=== PATIENT | male | born 1965 | race Caucasian/White ===

== ENCOUNTER 2017-07-27 19:33 | Emergency (ER) | payer SELFPAY ==
[2017-07-27 19:30] VITALS: O2SAT 96; O2SAT 98
[2017-07-27 19:36] VITALS: BP 153/66; PULSE 68; RESP 16; TEMP 97.8; O2SAT 98
--- NOTE | 2017-07-27 19:44 | PD ---
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 last seen normal at 6 5:00 apparently at 7:00 was not making sense was speaking strangely and minimally responsive paramedics found to be mildly hypertensive at 160 systolic confused and then he had a lateral left-sided gaze preference and then he had some focal like left arm seizure tonic-clonic and then he became more weak on the left arm he arrives he is minimally speaking just staring does not have any obvious gaze preference he has minimal decreased folding machine operator strength in the left hand however both legs is got equal elevation strength smile is symmetric he is crossing midline with his eyes and he has no obvious focal deficit except for decreased strength in his left hand patient is speaking very quietly and he takes a strong effort to make him to speak but he then starts to talk but it seems as if he is not making sense, CAT scan and stroke alert is activated and he is on the CAT scan . I also or CTA neck to rule out vertebral artery involvement and [place] CTA brain , [facility] Social History Tobacco Use: No (unknown due to clinical state and uncooperative pateint) Allergies-Medications (Allergen,Severity, Reaction): Coded Allergies: No Known Allergies (Unverified , 07/27/17) Reported Meds & Prescriptions Reported Meds & Active Scripts Active Reported Aspirin 81 Mg Chew 81 Mg CHEW DAILY Physical Exam Narrative GENERAL: Patient seems disheveled he is staring straight ahead and he has right gaze neglect will not cross midline to the right with his eyes SKIN: Warm and dry. HEAD: Atraumatic. Normocephalic. EYES: Pupils equal and round. No scleral icterus. No injection or drainage. ENT: No nasal bleeding or discharge. Mucous membranes pink and moist. Poor dentition missing many teeth NECK: Trachea midline. No JVD. No JVD CARDIOVASCULAR: Regular rate and rhythm. Heart is regular rate heart rate is 60 sinus RESPIRATORY: No accessory muscle use. Clear to auscultation. Breath sounds equal bilaterally. No respiratory distress GASTROINTESTINAL: Abdomen soft, non-tender, nondistended. Hepatic and splenic margins not palpable. MUSCULOSKELETAL: Extremities patient has a decreased folding machine operator strength and has gross motor discoordination of his left arm. When I asked him to squeeze my finger that I placed in his left palm he reaches with his right hand . Patient seems to have a left arm neglect and a right gaze neglect incongruent neurological distribution for intracranial ischemia NEUROLOGICAL: Awake and alert. Left arm weakness left folding machine operator strength decreased and when he does finger to nose he has discoordination of his left arm. Legs bilaterally have 5 out of 5 strength smile is symmetric right gaze neglect he will not cross midline with his eyes and he reaches with his right hand every time I try to get him to squeeze my finger with his left hand PSYCHIATRIC: Data Data Last Documented VS Vital Signs Date Time Temp Pulse Resp B/P (MAP) Pulse Ox O2 Delivery O2 Flow Rate FiO2 07/27/17 20:16 16 99 Nasal Cannula 2.00 07/27/17 19:44 68 07/27/17 19:36 97.8 153/66 (95) Orders Orders Electrocardiogram (07/27/17 19:39) Prothrombin Time / Inr (Pt) (07/27/17 19:39) Complete Blood Count With Diff (07/27/17 19:39) Comprehensive Metabolic Panel (07/27/17 19:39) Creatine Kinase (Cpk) (07/27/17 19:39) Troponin I (07/27/17 19:39) Ct Brain W/O Iv Contrast(Rout) (07/27/17 19:39) Cta Brain W Iv Contrast W 3d (07/27/17 19:39) Cta Neck W Iv Contrast W 3d (07/27/17 19:39) Chest, Single Ap (07/27/17 19:39) Ecg Monitoring (07/27/17 19:39) Iv Access Insert/Monitor (07/27/17 19:39) Oximetry (07/27/17 19:39) Sodium Chloride 0.9% Flush (Ns Flush) (07/27/17 19:45) Alcohol (Ethanol) (07/27/17 19:42) Iodixanol 320 Inj (Rad Ct) (Visipaque 32 (07/27/17 19:46) I-Stat Profile (07/27/17 19:20) Calcium Gluconate Inj (Calcium Gluconate (07/27/17 20:45) Aspirin Chew (Aspirin Chew) (07/27/17 21:00) Labs Laboratory Tests Test 07/27/17 19:20 07/28/17 19:18 White Blood Count 14.6 TH/MM3 Red Blood Count 4.33 MIL/MM3 Hemoglobin 13.5 GM/DL Bedside Hemoglobin 12.6 G/DL Hematocrit 39.3 % Bedside Hematocrit 37.0 % Mean Corpuscular Volume 90.8 FL Mean Corpuscular Hemoglobin 31.3 PG Mean Corpuscular Hemoglobin Concent 34.5 % Red Cell Distribution Width 13.6 % Platelet Count 322 TH/MM3 Mean Platelet Volume 7.3 FL Neutrophils (%) (Auto) 76.2 % Lymphocytes (%) (Auto) 16.3 % Monocytes (%) (Auto) 5.5 % Eosinophils (%) (Auto) 1.5 % Basophils (%) (Auto) 0.5 % Neutrophils # (Auto) 11.2 TH/MM3 Lymphocytes # (Auto) 2.4 TH/MM3 Monocytes # (Auto) 0.8 TH/MM3 Eosinophils # (Auto) 0.2 TH/MM3 Basophils # (Auto) 0.1 TH/MM3 CBC Comment DIFF FINAL Differential Comment Prothrombin Time 10.0 SEC Prothromb Time International Ratio 1.0 RATIO Bedside Sodium 133 MMOL/L Blood Urea Nitrogen 6 MG/DL Creatinine 0.66 MG/DL Random Glucose 92 MG/DL Total Protein 6.5 GM/DL Albumin 3.5 GM/DL Calcium Level 7.2 MG/DL Alkaline Phosphatase 95 U/L Aspartate Amino Transf (AST/SGOT) 35 U/L Alanine Aminotransferase (ALT/SGPT) 18 U/L Total Bilirubin 0.5 MG/DL Sodium Level 134 MEQ/L Potassium Level 3.9 MEQ/L Chloride Level 103 MEQ/L Carbon Dioxide Level 21.2 MEQ/L Bedside Potassium 3.9 MMOL/L Bedside Chloride 99 MMOL/L Anion Gap 10 MEQ/L Bedside Blood Urea Nitrogen 5 MG/DL Bedside Creatinine 0.6 MG/DL Estimat Glomerular Filtration Rate 126 ML/MIN Bedside Glucose 95 MG/DL Protein Corrected Calcium 7.5 MG/DL Total Creatine Kinase 222 U/L Troponin I LESS THAN 0.02 NG/ML Ethyl Alcohol Level LESS THAN 3 MG/DL Lab Scanned Report Lab Reports - Other [id number] [facility] Medical Decision Making Medical Screen Exam Complete: Yes Emergency Medical Condition: Yes Differential Diagnosis Differential diagnosis includes TIA versus post ictal's paralysis Adarsh's paralysis versus CVA versus vertebral artery dissection versus aneurysm rupture other Narrative Course Patient is a 52-year-old male who comes in by EMS and he is 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 His exam is inconsistent where his right visual gaze neglect also with the left hand neglect eventually patient becomes more awake alert his gaze palsy is resolved and he still has mild left hand weakness patient now is insisting he wants to leave. He says I do not like hospitals I am not staying you cannot make me stay he is alert and oriented 3. He lives with a MsJuvenal Rae he says he wants her to come and get him but we do not have her number and he does not know her phone number he does note house address he does know the day of the week he is oriented 3 and safe that he is of sound mind to make the decision to leave AGAINST MEDICAL ADVICE patient is advised he should stay that the risk of his arm weakness per progressing to a severe permanent deficit is increased by leaving he refuses the aspirin we try to give him I had spoke to . follow-up from neurology I spoke to Dr. Millan for neurosurgeon. Pt is redirected to stay by this MD and from nursing ..Heis still " I hate Hospitals" refuses to stay ..he leaves AGAINST MEDICAL ADVICE signs papers and walked out with no deficit no left-sided weakness.. seems that his symptoms have all resolved except mild hand weakness left . I had explained in detail the risk of propagation of his symptoms to permanent deficits and even possible . He is able to state that he understands the risk and walks out Diagnosis Primary Impression: CVA (cerebral vascular accident) Qualified Codes: I63.9 - Cerebral infarction, unspecified Disposition: 07 AGAINST MEDICAL ADVICE Jameel Singer MD July 27, 2017 19:44
[2017-07-27] MEDS ORDERED: SODIUM CHLORIDE 0.9% FLUSH 10 ML FLUSH IVF PRN (19:45)
[2017-07-27] MEDS ORDERED: IODIXANOL 320 MG/ML 10 ML VIAL (for Rad CT) IVCONTRAST ONE (19:46)
--- NOTE | 2017-07-27 19:51 | RADRPT ---
EXAM DATE/TIME: 07/27/2017 19:37 [facility] COMPARISON: No previous studies available for comparison. INDICATIONS : Stroke alert, left sided weakness, left sided gaze with seizure. RADIATION DOSE: 56.35 CTDIvol (mGy) This report was called by Dr. Garcia to Dr. Pastor at 7: 48 PM MEDICAL HISTORY : Non-responsive. SURGICAL HISTORY : Non-responsive. ENCOUNTER: Initial ACUITY: 1 day PAIN SCALE: Non-responsive LOCATION: cranial TECHNIQUE: Multiple contiguous axial images were obtained of the head. Using automated exposure control and adj ustment of the mA and/or kV according to patient size, radiation dose was kept as low as reasonably a chievable to obtain optimal diagnostic quality images. DICOM format image data is available electro nically for review and comparison. FINDINGS: CEREBRUM: There is a 1 cm hyperdense area seen in the anterior right suprasellar cistern region likely related to an aneurysm. The ventricles are normal for age. No evidence of midline shift, mass lesion, hemorr suze or acute infarction. No extra-axial fluid collections are seen. POSTERIOR FOSSA: The cerebellum and brainstem are intact. The 4th ventricle is midline. The cerebellopontine angle i s unremarkable. EXTRACRANIAL: The visualized portion of the orbits is intact. SKULL: The calvaria is intact. No evidence of skull fracture. CONCLUSION: 1. No acute areas of hemorrhage or mass effect. 2. 1 cm hyperdense mass in the right anterior suprasellar cistern region likely related to an aneurys m. Brayden Garcia MD on July 27, 2017 at 19:45 Board Certified Radiologist. This report was verified electronically.
[2017-07-27 19:53] LABS: AUTOMATED NEUTROPHIL # 11.2 TH/MM3 (1.8-7.7); BASOPHIL # 0.1 TH/MM3 (0-0.2); BASOPHIL % 0.5 % (0.0-2.0); EOSINOPHIL # 0.2 TH/MM3 (0-0.4); EOSINOPHIL % 1.5 % (0.0-4.0); HEMATOCRIT 39.3 % (39.0-51.0); HEMOGLOBIN 13.5 GM/DL (13.0-17.0); LYMPH % 16.3 % (9.0-44.0); LYMPHOCYTE # 2.4 TH/MM3 (1.0-4.8); MEAN CELL VOLUME 90.8 FL (80.0-100.0); MEAN CORPUSCULAR HEMOGLOBIN 31.3 PG (27.0-34.0); MEAN CORPUSCULAR HGB CONC 34.5 % (32.0-36.0); MEAN PLATELET VOLUME 7.3 FL (7.0-11.0); MONO % 5.5 % (0.0-8.0); MONOCYTE # 0.8 TH/MM3 (0-0.9); NEUT % 76.2 % (16.0-70.0); PLATELET COUNT 322 TH/MM3 (150-450); RED BLOOD COUNT 4.33 MIL/MM3 (4.50-5.90); RED CELL DISTRIBUTION WIDTH 13.6 % (11.6-17.2); WHITE BLOOD COUNT 14.6 TH/MM3 (4.0-11.0)
--- NOTE | 2017-07-27 20:05 | RADRPT ---
EXAM DATE/TIME: 07/27/2017 19:52 [facility] COMPARISON: No previous studies available for comparison. INDICATIONS : Stroke alert. MEDICAL HISTORY : None. SURGICAL HISTORY : None. ENCOUNTER: Initial ACUITY: 1 day PAIN SCORE: Non-responsive. LOCATION: Bilateral chest FINDINGS: A single view of the chest demonstrates the lungs to be symmetrically aerated without evidence of mas s, infiltrate or effusion. The cardiomediastinal contours are unremarkable. Old right rib fractures are seen. Contrast is seen in the kidneys. CONCLUSION: No acute disease. Brayden Garcia MD on July 27, 2017 at 20:03 Board Certified Radiologist. This report was verified electronically.
--- NOTE | 2017-07-27 20:10 | RADRPT ---
EXAM DATE/TIME: 07/27/2017 19:37 [facility] COMPARISON: No previous studies available for comparison. INDICATIONS : Stroke alert, left sided weakness. Left sided gaze with seizure. IV CONTRAST: 100 cc Visipaque (iodixanol) IV ; Cumulative dose for multiple exams. RADIATION DOSE: 10.39 CTDIvol (mGy) ; Combined studies MEDICAL HISTORY : Non-responsive. SURGICAL HISTORY : Non-responsive. ENCOUNTER: Initial ACUITY: 1 day PAIN SCALE: Non-responsive LOCATION: neck Elevated flow velocities and ICA/CCA ratios have been found to correlate with increased degrees of vessel stenosis, calculated as percentage of diameter relative to a normal segment of distal ICA/CCA. TECHNIQUE: Volumetric scanning was performed using a multirow detector CT scanner. The data was post processed with a variety of visualization algorithms including full-volume maximum intensity projection, multip lanar sliding thin-slab reformation, curved-planar reformation, and surface-rendering techniques. Us ing automated exposure control and adjustment of the mA and/or kV according to patient size, radiatio n dose was kept as low as reasonably achievable to obtain optimal diagnostic quality images. DICOM f ormat image data is available electronically for review and comparison. FINDINGS: AORTIC ARCH: There is a three-vessel origin of the great vessels from the aorta. No evidence of ostial narrowing. There is calcification seen at the proximal left subclavian artery. RIGHT CAROTID: The common carotid artery is intact. There is mild calcification at the carotid bulb region without a significant stenosis. LEFT CAROTID: The common carotid artery is intact. There is hard and soft plaque seen at the left carotid bulb and proximal internal carotid artery with a very severe stenosis with lumen narrowed by approximately 90 %. VERTEBRALS: Right vertebral artery is intact. The left vertebral artery is not seen throughout the neck. CONCLUSION: 1. Severe focal stenosis at the proximal left internal coronary with the stenosis narrowing the lumen by approximately 90%. 2. Absence of the left vertebral artery. Brayden Garcia MD on July 27, 2017 at 20:04 Board Certified Radiologist. This report was verified electronically.
--- NOTE | 2017-07-27 20:14 | RADRPT ---
EXAM DATE/TIME: 07/27/2017 19:37 [facility] COMPARISON: No previous studies available for comparison. INDICATIONS : Stroke alert, left sided weakness. Left sided gaze with seizure. IV CONTRAST: 100 cc Visipaque (iodixanol) IV ; Cumulative dose for multiple exams. RADIATION DOSE: 10.39 CTDIvol (mGy) MEDICAL HISTORY : Non-responsive. SURGICAL HISTORY : Non-responsive. ENCOUNTER: Initial ACUITY: 1 day PAIN SCALE: Non-responsive LOCATION: cranial TECHNIQUE: Volumetric scanning was performed using a multi-row detector CT scanner. The data was post processed with a variety of visualization algorithms including full volume maximum intensity projection, multi -planar sliding thin slab reformation, curved planar reformation, and surface rendering techniques. Using automated exposure control and adjustment of the mA and/or kV according to patient size, radiat ion dose was kept as low as reasonably achievable to obtain optimal diagnostic quality images. DICO M format image data is available electronically for review and comparison. FINDINGS: There is excellent visualization of the major intracranial arteries out to the second-order branch ve ssels. There is a 1 cm aneurysm seen at the anterior suprasellar cistern region at the level of anterior com municating artery. No other aneurysm is seen. The distal flow appears normal and symmetric. The super ior aspect of the left vertebral artery fills via collaterals. The basilar artery primarily filled by the right vertebral artery. 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 Brayden Garcia MD on July 27, 2017 at 20:09 Board Certified Radiologist. This report was verified electronically.
[2017-07-27 20:16] VITALS: RESP 16; O2SAT 99
[2017-07-27] MEDS ORDERED: ASPI-516 CHEW (20:27)
[2017-07-27 20:36] LABS: ALBUMIN 3.5 GM/DL (3.4-5.0); ALKALINE PHOSPHATASE 95 U/L (45-117); ALT (GPT) 18 U/L (12-78); AST (GOT) 35 U/L (15-37); BICARBONATE 21.2 MEQ/L (21.0-32.0); BLOOD UREA NITROGEN 6 MG/DL (7-18); CALCIUM 7.2 MG/DL (8.5-10.1); CALCIUM-PROTEIN CORRECTED 7.5 MG/DL (8.5-10.1); CHLORIDE 103 MEQ/L (98-107); CREATININE 0.66 MG/DL (0.60-1.30); GLOMERULAR FILTRATION RATE 126 ML/MIN (>89); GLUCOSE,RANDOM 92 MG/DL (74-106); SODIUM (NA) 134 MEQ/L (136-145); TOTAL BILIRUBIN ADULT 0.5 MG/DL (0.2-1.0); TOTAL PROTEIN 6.5 GM/DL (6.4-8.2); TROPONIN I LESS THAN 0.02 NG/ML (0.02-0.05)
[2017-07-27] MEDS ORDERED: CALCIUM GLUCONATE INJ 1 GM in DEXTROSE 5% IN WATER 100ML INJ 100 ML IV ONE ×2 (20:45)
[2017-07-27] MEDS ORDERED: ASPIRIN 81 MG CHEW TAB CHEW ONE (21:00)
--- NOTE | 2017-07-28 12:16 | EKG ---
Date Performed: 07/27/2017 Time Performed: 20:04:53 PTAGE: 52 years EKG: Sinus rhythm POSSIBLE LEFT ATRIAL ENLARGEMENT INCOMPLETE RIGHT BUNDLE BRANCH BLOCK BORDERLINE ECG NO PREVIOUS TRACING DOCTOR: Aleks Huerta Interpretating Date/Time 07/28/2017 12:14:11
== END 2017-07-27 22:02 | disposition left against medical advice (07) ==
LOC: NEPE 19:33
DX: I63.9 Cerebral infarction, unspecified (principal); R94.31 Abnormal electrocardiogram [ECG] [EKG]; I10 Essential (primary) hypertension; I72.8 Aneurysm of other specified arteries; Z79.899 Other long term (current) drug therapy; Z53.29 Procedure and treatment not carried out because of patient's decision for other reasons
CPT/HCPCS: 70450; 70496; 70498; 71045; 80053; 80307; 82550; 84484; 85025; 85610; 93005; 99285; Q9967; 80048

== ENCOUNTER 2017-07-30 19:04 | Observation (INO) | payer OTHER ==
[~2017-07-30] VITALS: Ht 162.6 cm; Wt 68.9 kg
[~2017-07-30 19:04] MED LIST: ASPI-516 CHEW
[2017-07-30 19:23] VITALS: BP 120/59; PULSE 71; RESP 16; TEMP 97.6; O2SAT 96
--- NOTE | 2017-07-30 20:04 | PD ---
HPI Chief Complaint: Alcohol/Drug Intoxication Time Seen by Provider: 19:40 Travel History International Travel<30 days: No Contact w/Intl Traveler<30days: No Traveled to known affect area: No History of Present Illness HPI 52-year-old white male presents emergency department under [place] act by PD due to alcohol intoxication. The patient here states that he is currently homeless. He was just seen in the ER a few days ago for a stroke when they diagnosed an aneurysm. The patient had signed out AGAINST MEDICAL ADVICE. Patient states that his significant other would not allow him to stay in there home and he has been on the streets. He states that he would like to be evaluated for his aneurysm. He does state that he had left-sided weakness which has improved but not completely back to normal. He has had issues with facial droop and slurred speech. He admits to drinking a large quantity of alcohol today. Patient is intoxicated and a reliable history is not completely obtainable. PFS Past Medical History Narrative Medical CVA, cerebral aneurysm, homelessness, alcoholism Diminished Hearing: No (UNKNOWN ) Tetanus Vaccination: Unknown Past Surgical History Surgical History: Unable to Obtain Social History Alcohol Use: Yes Tobacco Use: Yes Substance Use: Yes (Alcohol) Allergies-Medications (Allergen,Severity, Reaction): Coded Allergies: No Known Allergies (Unverified , 07/27/17) Reported Meds & Prescriptions Reported Meds & Active Scripts Active Reported Aspirin 81 Mg Chew 81 Mg CHEW DAILY Review of Systems ROS Limitations: Intoxication Physical Exam Narrative GENERAL: Well-nourished, well-developed patient. SKIN: Warm and dry. HEAD: Normocephalic and atraumatic. EYES: No scleral icterus. No injection or drainage. ENT: No nasal drainage noted. Mucous membranes pink. Airway patent. NECK: Supple, trachea midline. Moves head freely without obvious discomfort. CARDIOVASCULAR: Regular rate and rhythm without murmurs, gallops, or rubs. RESPIRATORY: Breath sounds equal bilaterally. No accessory muscle use. GASTROINTESTINAL: Abdomen soft, non-tender, nondistended. EXTREMITIES: No cyanosis or edema. BACK: Nontender without obvious deformity. No CVA tenderness. NEURO: Patient is alert and oriented to person and place. Patient has been ambulatory but has a mildly ataxic gait due to alcohol. Patient has a right facial droop and some trace weakness on the left side compared to the right.. Normal speech. PSYCH: No delusions. No auditory or visual hallucinations. Slurred speech Data Data Last Documented VS Vital Signs Date Time Temp Pulse Resp B/P (MAP) Pulse Ox O2 Delivery O2 Flow Rate FiO2 07/30/17 23:22 72 16 104/58 (73) 98 Room Air 07/30/17 19:23 97.6 Orders Orders Complete Blood Count With Diff (07/30/17 19:58) Comprehensive Metabolic Panel (07/30/17 19:58) Thyroid Stimulating Hormone (07/30/17 19:58) Electrocardiogram (07/30/17 19:58) Iv Access Insert/Monitor (07/30/17 19:58) Drug Screen, Random Urine (07/30/17 19:58) Alcohol (Ethanol) (07/30/17 19:58) Ct Brain W/O Iv Contrast(Rout) (07/30/17 21:57) Prothrombin Time / Inr (Pt) (07/30/17 22:02) Act Partial Throm Time (Ptt) (07/30/17 22:02) Admit Order (Ed Use Only) (07/31/17 ) Vital Signs (Adult) Q4H (07/31/17 00:23) Diet Npo (07/31/17 Breakfast) Activity Bed Rest (07/31/17 00:23) Notify Dr: Other (07/31/17 00:23) Vital Signs (Adult) Q4H (07/31/17 00:26) Bedside Glucose CAROLA.CSUGAR (07/31/17 00:26) Intake + Output CAROLA.QSHIFT (07/31/17 00:26) Alcohol Withdrawal Asmt-Ciwa Q4HX18 (07/31/17 00:26) ^ Seizure Precautions (07/31/17 00:26) Folic Acid (Folate) (07/31/17 09:00) Thiamine (Vit B1) (Vitamin B1) (07/31/17 09:00) Multivitamins-Minerals Therap (Theragran (07/31/17 09:00) Consult Cm-Etoh Abuse Dc Plan (07/31/17 ) Flumazenil Inj (Romazicon Inj) (07/31/17 00:30) Lorazepam (Ativan) (07/31/17 00:30) Lorazepam Inj (Ativan Inj) (07/31/17 00:30) Lorazepam (Ativan) (07/31/17 00:30) Lorazepam Inj (Ativan Inj) (07/31/17 00:30) Lorazepam Inj (Ativan Inj) (07/31/17 00:30) Lorazepam Inj (Ativan Inj) (07/31/17 00:30) Haloperidol Inj (Haldol Inj) (07/31/17 00:30) Aspirin Ec (Ecotrin Ec) (07/31/17 09:00) Consult Neurology (07/31/17 ) Place In Observation (07/31/17 ) Vital Signs (Adult) Q4H (07/31/17:26) Neuro Checks Q4H (07/31/17) Activity Oob With Assistance (07/31/17) Field Examiner / Telemetry .CONTINUOUS (07/31/17) Intake + Output CAROLA.QSHIFT (07/31/17:) Diet Regular Basic (07/31/17 Breakfast) Sodium Chlor 0.9% 1000 Ml Inj (Ns 1000 M (07/31/17:26) Sodium Chloride 0.9% Flush (Ns Flush) (07/31/17 00:30) Sodium Chloride 0.9% Flush (Ns Flush) (07/31/17 09:00) Metoclopramide Inj (Reglan Inj) (07/31/17 00:30) Comprehensive Metabolic Panel (08/01/17 06:00) Complete Blood Count With Diff (08/01/17 06:00) Pt Request For Service (07/31/17:) Case Management Consult (07/31/17:26) Scd Bilateral/Knee High CAROLA.BID (07/31/17 00:26) Ac Bilateral/Knee High CAROLA.QSHIFT (07/31/17 00:28) Acetaminophen (Tylenol) (07/31/17 00:30) Docusate Sodium-Senna (Ernestine-Colace) (07/31/17 09:00) Magnesium Hydroxide Liq (Milk Of Magnesi (07/31/17 00:30) Sennosides (Senokot) (07/31/17 00:30) Bisacodyl Supp (Dulcolax Supp) (5/21/18 00:30) Lactulose Liq (Lactulose Liq) (07/31/17 00:30) Labs Laboratory Tests Test 07/30/17 20:30 07/30/17 20:35 07/30/17 22:10 White Blood Count 8.5 TH/MM3 Red Blood Count 4.40 MIL/MM3 Hemoglobin 13.8 GM/DL Hematocrit 39.6 % Mean Corpuscular Volume 89.9 FL Mean Corpuscular Hemoglobin 31.4 PG Mean Corpuscular Hemoglobin Concent 35.0 % Red Cell Distribution Width 14.0 % Platelet Count 342 TH/MM3 Mean Platelet Volume 7.2 FL Neutrophils (%) (Auto) 47.6 % Lymphocytes (%) (Auto) 42.8 % Monocytes (%) (Auto) 4.7 % Eosinophils (%) (Auto) 4.3 % Basophils (%) (Auto) 0.6 % Neutrophils # (Auto) 4.1 TH/MM3 Lymphocytes # (Auto) 3.6 TH/MM3 Monocytes # (Auto) 0.4 TH/MM3 Eosinophils # (Auto) 0.4 TH/MM3 Basophils # (Auto) 0.0 TH/MM3 CBC Comment DIFF FINAL Differential Comment Urine Opiates Screen NEG Urine Barbiturates Screen NEG Urine Amphetamines Screen NEG Urine Benzodiazepines Screen NEG Urine Cocaine Screen NEG Urine Cannabinoids Screen NEG Prothrombin Time 12.0 SEC Prothromb Time International Ratio 1.2 RATIO Activated Partial Thromboplast Time 31.6 SEC Blood Urea Nitrogen 2 MG/DL Creatinine 0.54 MG/DL Random Glucose 77 MG/DL Total Protein 6.6 GM/DL Albumin 3.5 GM/DL Calcium Level 7.3 MG/DL Alkaline Phosphatase 90 U/L Aspartate Amino Transf (AST/SGOT) 33 U/L Alanine Aminotransferase (ALT/SGPT) 20 U/L Total Bilirubin 0.3 MG/DL Sodium Level 130 MEQ/L Potassium Level 4.4 MEQ/L Chloride Level 94 MEQ/L Carbon Dioxide Level 24.1 MEQ/L Anion Gap 12 MEQ/L Estimat Glomerular Filtration Rate 159 ML/MIN Protein Corrected Calcium 7.6 MG/DL Thyroid Stimulating Hormone 3rd Gen 2.320 uIU/ML Ethyl Alcohol Level 245 MG/DL MDM Medical Decision Making Medical Screen Exam Complete: Yes Emergency Medical Condition: Yes Medical Record Reviewed: Yes Interpretation(s) Last [address] 07/30/172156 Signed Impressions: Service Date/Time: Sunday, July 30, 2017 23:10 - CONCLUSION: 1. No acute hemorrhage or mass effect. 2. The known 1 cm aneurysm along anterior communicating arteries is again noted. 3. Low attenuation area again noted involving the right parietal lobe most consistent with a subacute to chronic area of infarction. Gee Lin MD Laboratory Tests Test 07/30/17 20:30 07/30/17 20:35 07/30/17 22:10 White Blood Count 8.5 TH/MM3 Red Blood Count 4.40 MIL/MM3 Hemoglobin 13.8 GM/DL Hematocrit 39.6 % Mean Corpuscular Volume 89.9 FL Mean Corpuscular Hemoglobin 31.4 PG Mean Corpuscular Hemoglobin Concent 35.0 % Red Cell Distribution Width 14.0 % Platelet Count 342 TH/MM3 Mean Platelet Volume 7.2 FL Neutrophils (%) (Auto) 47.6 % Lymphocytes (%) (Auto) 42.8 % Monocytes (%) (Auto) 4.7 % Eosinophils (%) (Auto) 4.3 % Basophils (%) (Auto) 0.6 % Neutrophils # (Auto) 4.1 TH/MM3 Lymphocytes # (Auto) 3.6 TH/MM3 Monocytes # (Auto) 0.4 TH/MM3 Eosinophils # (Auto) 0.4 TH/MM3 Basophils # (Auto) 0.0 TH/MM3 CBC Comment DIFF FINAL Differential Comment Urine Opiates Screen NEG Urine Barbiturates Screen NEG Urine Amphetamines Screen NEG Urine Benzodiazepines Screen NEG Urine Cocaine Screen NEG Urine Cannabinoids Screen NEG Prothrombin Time 12.0 SEC Prothromb Time International Ratio 1.2 RATIO Activated Partial Thromboplast Time 31.6 SEC Blood Urea Nitrogen 2 MG/DL Creatinine 0.54 MG/DL Random Glucose 77 MG/DL Total Protein 6.6 GM/DL Albumin 3.5 GM/DL Calcium Level 7.3 MG/DL Alkaline Phosphatase 90 U/L Aspartate Amino Transf (AST/SGOT) 33 U/L Alanine Aminotransferase (ALT/SGPT) 20 U/L Total Bilirubin 0.3 MG/DL Sodium Level 130 MEQ/L Potassium Level 4.4 MEQ/L Chloride Level 94 MEQ/L Carbon Dioxide Level 24.1 MEQ/L Anion Gap 12 MEQ/L Estimat Glomerular Filtration Rate 159 ML/MIN Protein Corrected Calcium 7.6 MG/DL Thyroid Stimulating Hormone 3rd Gen 2.320 uIU/ML Ethyl Alcohol Level 245 MG/DL Differential Diagnosis Differential diagnoses: Alcohol intoxication, substance abuse, electrolyte abnormality, CVA, aneurysm, alcohol withdrawal seizure, Adarsh's paralysis, malingering Narrative Course We will reassess the patient with laboratory testing and EtOH. The patient's CT scan shows a subacute or chronic right CVA. Patient has symptoms consistent with a subacute event. It is unclear whether the patient may have had more of a chronic event and had exacerbation of his weakness after having alcohol intoxication and/or alcohol withdrawal seizure. Patient has a 1 cm aneurysm which does not appear to be associated with this presenting complaints today. The patient today is requesting evaluation. He is intoxicated. He has a alcohol of 255. I discussed the case with the admitting service who is agreed to admit him to an observation period and have a neurology consult. Diagnosis Primary Impression: CVA (acute/chronic) Additional Impression: Alcohol intoxication Condition: Stable Devang Bruno July 30, 2017 20:04
[2017-07-30 20:50] LABS: AUTOMATED NEUTROPHIL # 4.1 TH/MM3 (1.8-7.7); BASOPHIL % 0.6 % (0.0-2.0); EOSINOPHIL # 0.4 TH/MM3 (0-0.4); EOSINOPHIL % 4.3 % (0.0-4.0); HEMATOCRIT 39.6 % (39.0-51.0); HEMOGLOBIN 13.8 GM/DL (13.0-17.0); LYMPH % 42.8 % (9.0-44.0); LYMPHOCYTE # 3.6 TH/MM3 (1.0-4.8); MEAN CELL VOLUME 89.9 FL (80.0-100.0); MEAN CORPUSCULAR HEMOGLOBIN 31.4 PG (27.0-34.0); MEAN PLATELET VOLUME 7.2 FL (7.0-11.0); MONO % 4.7 % (0.0-8.0); MONOCYTE # 0.4 TH/MM3 (0-0.9); NEUT % 47.6 % (16.0-70.0); PLATELET COUNT 342 TH/MM3 (150-450); WHITE BLOOD COUNT 8.5 TH/MM3 (4.0-11.0)
--- NOTE | 2017-07-30 22:33 | EKG ---
Date Performed: 07/30/2017 Time Performed: 20:24:02 PTAGE: 52 years EKG: Sinus rhythm RIGHT BUNDLE BRANCH BLOCK ABNORMAL ECG PREVIOUS TRACING : 07/27/2017 20.04 No significant change from previous tracing noted. DOCTOR: Brett Carrasco Interpretating Date/Time 07/30/2017 22:33:15
[2017-07-30 22:41] LABS: ALBUMIN 3.5 GM/DL (3.4-5.0); BICARBONATE 24.1 MEQ/L (21.0-32.0); CALCIUM 7.3 MG/DL (8.5-10.1); CREATININE 0.54 MG/DL (0.60-1.30)
[2017-07-30 22:51] LABS: CALCIUM-PROTEIN CORRECTED 7.6 MG/DL (8.5-10.1); TOTAL BILIRUBIN ADULT 0.3 MG/DL (0.2-1.0); TOTAL PROTEIN 6.6 GM/DL (6.4-8.2)
[2017-07-30 22:54] LABS: INTERNATIONAL NORMALIZED RATIO 1.2 RATIO
[2017-07-30 23:22] VITALS: BP 104/58; PULSE 72; RESP 16; O2SAT 98
--- NOTE | 2017-07-30 23:31 | RADRPT ---
EXAM DATE/TIME: 07/30/2017 23:10 [facility] COMPARISON: CT BRAIN W/O CONTRAST, July 27, 2017, 19:37. INDICATIONS : Altered mental status; ETOH. RADIATION DOSE: 38.53 CTDIvol (mGy) MEDICAL HISTORY : 1 cm aneurysm in the anterior communicating artery region seen 3 days ago on brain CT and CT angiogra m. SURGICAL HISTORY : None. ENCOUNTER: Initial ACUITY: 1 day PAIN SCALE: Non-responsive LOCATION: cranial TECHNIQUE: Multiple contiguous axial images were obtained of the head. Using automated exposure control and adj ustment of the mA and/or kV according to patient size, radiation dose was kept as low as reasonably a chievable to obtain optimal diagnostic quality images. DICOM format image data is available electro nically for review and comparison. FINDINGS: CEREBRUM: The ventricles are normal for age. No evidence of midline shift or hemorrhage. There is an area decr eased attenuation again noted involving the right parietal lobe without change. This extends to the s urface of the brain. The known 1 cm aneurysm in the region of the anterior communicating artery regio n is again isualized. No extra-axial fluid collections are seen. POSTERIOR FOSSA: The cerebellum and brainstem are intact. The 4th ventricle is midline. The cerebellopontine angle i s unremarkable. EXTRACRANIAL: The visualized portion of the orbits is intact. SKULL: The calvaria is intact. No evidence of skull fracture. CONCLUSION: 1. No acute hemorrhage or mass effect. 2. The known 1 cm aneurysm along anterior communicating arteries is again noted. 3. Low attenuation area again noted involving the right parietal lobe most consistent with a subacute to chronic area of infarction. Gee Lin MD on July 30, 2017 at 23:26 Board Certified Radiologist. This report was verified electronically.
[2017-07-31] VITALS (9 sets, daily range): BP systolic 111–163; BP diastolic 56–70; PULSE 68–83; RESP 16–20; TEMP 97.2–99.3; O2SAT 93–97
[2017-07-31] MEDS ORDERED: ACETAMINOPHEN 325 MG TAB PO PRN (00:30)
[2017-07-31] MEDS ORDERED: MAGNESIUM HYDROXIDE SUSP 30 ML CUP PO PRN (00:30)
[2017-07-31] MEDS ORDERED: SENNOSIDES 8.6 MG TAB PO PRN (00:30)
[2017-07-31] MEDS ORDERED: BISACODYL 10 MG SUPP RECTAL PRN (00:30)
[2017-07-31] MEDS ORDERED: LORazepam 1 MG TAB PO PRN (00:30)
[2017-07-31] MEDS ORDERED: LACTULOSE SYRUP 20 GM/30 ML CUP PO PRN (00:30)
[2017-07-31] MEDS ORDERED: LORazepam 2 MG/ML VIAL IV PUSH PRN ×4 (00:30)
[2017-07-31] MEDS ORDERED: LORazepam 2 MG TAB PO PRN (00:30)
[2017-07-31] MEDS ORDERED: METOCLOPRAMIDE HCL 10 MG/2 ML VIAL IV PUSH PRN (00:30)
[2017-07-31] MEDS ORDERED: HALOPERIDOL LACTATE 5 MG/ML AMP IM PRN (00:30)
[2017-07-31] MEDS ORDERED: FLUMAZENIL 0.5 MG/5 ML VIAL IV PUSH PRN (00:30)
[2017-07-31] MEDS ORDERED: SODIUM CHLORIDE 0.9% FLUSH 10 ML FLUSH IV FLUSH PRN (00:30)
[2017-07-31] MEDS: SODIUM CHLOR 0.9% 1000 ML INJ 1,000 ML IV SCH ×4 (00:57→23:36)
--- NOTE | 2017-07-31 03:56 | HHI.HP ---
[facility]ician No Primary Care Physician Admission Diagnosis CVA (acute/chronic), alcohol intoxication, 1 cm brain aneurysm Diagnoses: (1) CVA (cerebrovascular accident) (2) Carotid artery stenosis (3) Brain aneurysm (4) Alcohol intoxication Chief Complaint: "I had a spell" Travel History International Travel<30 Days: No Contact w/Intl Traveler <30 Da: No Traveled to Known Affected Are: No History of Present Illness Mr. Head is a 52 y/o male with a history of changes on brain CT c/w subacute vs chronic right parietal CVA, left carotid stenosis - 90%, alcohol abuse, and 1 cm hyperdense mass in right anterior suprasellar cistern likely related to an aneurysm found on head CT on 07/27/17 prior to the patient leaving [facility] from the ER on the same date. He also reports a history of CAD s/p stent placement. He returned to the ED on 07/30/17 under [place] act by police department due to alcohol intoxication. He requested evaluation for his aneurysm at the time of presentation in the emergency department. The patient was admitted to observation under the hospitalist service. The patient is seen in his hospital room. He is uncooperative with examination and history process. He is drowsy throughout my visit. He refuses to open his eyes throughout the visit. He reports that he had "a spell" and does not elucidate further his reasons for coming to the hospital. He will answer yes/ no to questions. Review of Systems Except as stated in HPI: all other systems reviewed are Neg Past Family Social History Past Medical History Left carotid artery stenosis CVA Aneurysm Alcohol abuse Coronary artery disease status post stent placement . Past Surgical History Cardiac catheterization with stent placement -could not tell me when or by whom . Reported Medications Reports he is supposed to take an aspirin daily but does not do this . Allergies: Coded Allergies: No Known Allergies (Unverified , 07/27/17) Family History Family history of heart disease . Social History Tobacco: Smokes 1-1/2 packs per day Alcohol: Drinks 2-12 packs of beer every other day Illicit Drugs: Denies . Physical Exam Vital Signs Vital Signs Date Time Temp Pulse Resp B/P (MAP) Pulse Ox O2 Delivery O2 Flow Rate FiO2 07/31/17 02:00 97.2 69 20 121/66 (84) 94 07/31/17 01:36 68 07/30/17 23:22 72 16 104/58 (73) 98 Room Air 07/30/17 19:23 97.6 71 16 120/59 (79) 96 Physical Exam CONSTITUTIONAL: This is a disheveled male patient, drowsy and not cooperative with all of the examination. INTEGUMENTARY: No rashes. Cool and dry. HEAD: Atraumatic. Normocephalic. EYES: No scleral icterus. No injection or drainage. ENT: Nose without bleeding, purulent drainage. NECK: Trachea midline. No JVD. CARDIOVASCULAR: Regular rate and rhythm without murmurs, gallops, or rubs. RESPIRATORY: Clear to auscultation. Breath sounds equal bilaterally. No wheezes , rales, or rhonchi. GASTROINTESTINAL: Abdomen soft, non-tender, nondistended. No guarding. MUSCULOSKELETAL: Extremities without clubbing, cyanosis, or edema. No calf tenderness. NEUROLOGICAL: Drowsy and uncooperative. Normal speech. Facial droop not clearly noted. . Laboratory Laboratory Tests Test 07/30/17 20:30 07/30/17 20:35 07/30/17 22:10 White Blood Count 8.5 Red Blood Count 4.40 Hemoglobin 13.8 Hematocrit 39.6 Mean Corpuscular Volume 89.9 Mean Corpuscular Hemoglobin 31.4 Mean Corpuscular Hemoglobin Concent 35.0 Red Cell Distribution Width 14.0 Platelet Count 342 Mean Platelet Volume 7.2 Neutrophils (%) (Auto) 47.6 Lymphocytes (%) (Auto) 42.8 Monocytes (%) (Auto) 4.7 Eosinophils (%) (Auto) 4.3 Basophils (%) (Auto) 0.6 Neutrophils # (Auto) 4.1 Lymphocytes # (Auto) 3.6 Monocytes # (Auto) 0.4 Eosinophils # (Auto) 0.4 Basophils # (Auto) 0.0 CBC Comment DIFF FINAL Differential Comment Urine Opiates Screen NEG Urine Barbiturates Screen NEG Urine Amphetamines Screen NEG Urine Benzodiazepines Screen NEG Urine Cocaine Screen NEG Urine Cannabinoids Screen NEG Prothrombin Time 12.0 Prothromb Time International Ratio 1.2 Activated Partial Thromboplast Time 31.6 Blood Urea Nitrogen 2 Creatinine 0.54 Random Glucose 77 Total Protein 6.6 Albumin 3.5 Calcium Level 7.3 Alkaline Phosphatase 90 Aspartate Amino Transf (AST/SGOT) 33 Alanine Aminotransferase (ALT/SGPT) 20 Total Bilirubin 0.3 Sodium Level 130 Potassium Level 4.4 Chloride Level 94 Carbon Dioxide Level 24.1 Anion Gap 12 Estimat Glomerular Filtration Rate 159 Protein Corrected Calcium 7.6 Thyroid Stimulating Hormone 3rd Gen 2.320 Ethyl Alcohol Level 245 Result Diagram: 07/30/17202907/30/172209 Imaging Last Impressions Head CT 07/30/172156 Signed Impressions: Service Date/Time: Sunday, July 30, 2017 23:10 - CONCLUSION: 1. No acute hemorrhage or mass effect. 2. The known 1 cm aneurysm along anterior communicating arteries is again noted. 3. Low attenuation area again noted involving the right parietal lobe most consistent with a subacute to chronic area of infarction. Gee Lin MD . Caprini VTE Risk Assessment Caprini VTE Risk Assessment: Mod/High Risk (score >= 2) Caprini Risk Assessment Model Point Value = 1 Point Value = 2 Point Value = 3 Point Value = 5 Age 41-60 Minor surgery BMI > 25 kg/m2 Swollen legs Varicose veins or History of unexplained or recurrent spontaneous Oral contraceptives or hormone replacement Sepsis (< 1 month) Serious lung disease, including pneumonia (< 1 month) Abnormal pulmonary function Acute myocardial infarction Congestive heart failure (< 1 month) History of inflammatory bowel disease Medical patient at bed rest Age 61-74 Arthroscopic surgery Major open surgery (> 45 min) Laparoscopic surgery (> 45 min) Malignancy Confined to bed (> 72 hours) Immobilizing plaster cast Central venous access Age >= 75 History of VTE Family history of VTE Factor V Leiden Prothrombin [id number] Lupus anticoagulant Anticardiolipin antibodies Elevated serum homocysteine Heparin-induced thrombocytopenia Other congenital or acquired thrombophilia Stroke (< 1 month) Elective arthroplasty Hip, pelvis, or leg fracture Acute spinal cord injury (< 1 month) Prophylaxis Regimen Total Risk Factor Score Risk Level Prophylaxis Regimen 0-1 Low Early ambulation 2 Moderate Order ONE of the following: *Sequential Compression Device (SCD) *Heparin 5000 units SQ BID 3-4 Higher Order ONE of the following medications: *Heparin 5000 units SQ TID *Enoxaparin/Lovenox 40 mg SQ daily (WT < 150 kg, CrCl > 30 mL/min) *Enoxaparin/Lovenox 30 mg SQ daily (WT < 150 kg, CrCl > 10-29 mL/min) *Enoxaparin/Lovenox 30 mg SQ BID (WT < 150 kg, CrCl > 30 mL/min) AND/OR *Sequential Compression Device (SCD) 5 or more Highest Order ONE of the following medications: *Heparin 5000 units SQ TID (Preferred with Epidurals) *Enoxaparin/Lovenox 40 mg SQ daily (WT < 150 kg, CrCl > 30 mL/min) *Enoxaparin/Lovenox 30 mg SQ daily (WT < 150 kg, CrCl > 10-29 mL/min) *Enoxaparin/Lovenox 30 mg SQ BID (WT < 150 kg, CrCl > 30 mL/min) AND *Sequential Compression Device (SCD) Assessment and Plan Problem List: (1) CVA (cerebrovascular accident) ICD Code: I63.9 - Cerebral infarction, unspecified (2) Brain aneurysm ICD Code: I67.1 - Cerebral aneurysm, nonruptured (3) Carotid artery stenosis ICD Code: I65.29 - Occlusion and stenosis of unspecified carotid artery (4) Alcohol intoxication ICD Code: F10.929 - Alcohol use, unspecified with intoxication, unspecified Assessment and Plan Mr. Head is a 52 y/o male with a history of changes on brain CT c/w subacute vs chronic right parietal CVA, left carotid stenosis - 90%, alcohol abuse, and 1 cm hyperdense mass in right anterior suprasellar cistern likely related to an aneurysm found on head CT on 07/27/17 prior to the patient leaving AMA from the ER on the same date. He also reports a history of CAD s/p stent placement. He returned to the ED on 07/30/17 under [place] act by police department due to alcohol intoxication. He requested evaluation for his aneurysm at the time of presentation in the emergency department. The patient was admitted to observation under the hospitalist service. CVA, subacute vs chronic - Head CT shows "low attenuation area again noted involving right parietal lobe most consistent with a subacute to chronic area of infarction" - no acute hemorrhage or mass effect. 1 cm aneurysm along anterior communicating arteries also again noted. - consult neurology -appreciate assistance -Neuro checks every 4 hours Carotid artery stenosis, left -left carotid stenosis - 90% on neck CTA 07/27/17 -Consult vascular surgery -assistance appreciated Alcohol abuse, high risk for alcohol withdrawal -Continuous cardiac telemetry to monitor for arrhythmia -CIWA protocol -seizure precautions DVT prophylaxis -SCDs/teds Discussed Condition With Dr. Chamorro, patient, and RN . Vanessa Hebert July 31, 2017 03:55
[2017-07-31] MEDS: MULTIVITAMINS/MINERALS THERAPEUTIC TAB PO SCH (08:41)
[2017-07-31] MEDS: THIAMINE HCL 100 MG TAB PO SCH (08:41)
[2017-07-31] MEDS: ASPIRIN EC 81 MG TABEC PO SCH (08:41)
[2017-07-31] MEDS: FOLIC ACID 1 MG TAB PO SCH (08:41)
[2017-07-31] MEDS: DOCUSATE SODIUM 50 MG/SENNA 8.6 MG TAB PO SCH ×2 (08:41→20:38)
[2017-07-31] MEDS: SODIUM CHLORIDE 0.9% FLUSH 10 ML FLUSH IV FLUSH SCH ×2 (08:41→20:37)
--- NOTE | 2017-07-31 09:38 | MB ---
cc: Aleks Hung MD DATE: 07/31/2017 HISTORY OF PRESENT ILLNESS: A 52-year-old right-handed man with a history of alcoholism and living on the street recently, cardiac stent years ago. Does not take an aspirin a day. He says he has had possibly some seizures in the last several days, but several days ago he was sitting and seemed to have a change in his vision and could not move his arms on both sides and got scared and came in the hospital. He said it was possibly a seizure yesterday, although he is really not sure about that. He actually came in the ER on 07/27/2017. He was not making sense, speaking strangely, minimally responsive. The paramedics found him mildly hypertensive, left lateral gaze preference, focal left arm seizure and more weak on the left arm. He was minimally speaking, just staring, minimal decreased cardiac technician on the left hand, then he seemed to improve. He smelled of alcohol. CAT scan showed some slight encephalomalacia on the right parietal posterior temporal region versus just in a large sulci. 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 He then left against medical advice. He does not take an aspirin regularly, but he is supposed to, he tells me. He then was readmitted yesterday, came in under [facility] Act by Police Department due to alcohol intoxication. He is homeless and wanted to have his aneurysm evaluated. His alcohol level here was 0, although he was noted to be intoxicated last night. He says he is not interested in detoxification and rehabilitation. REVIEW OF SYSTEMS: He denied any hypertension, hypercholesterolemia, CABG, AFib, Coumadin. His stent was put in a few years ago, but he is not sure who the robotic maintenance technician was. No history of renal, hepatic or pulmonary disease, thyroid disease, lupus, ulcer, cancer, stroke. SOCIAL HISTORY: Not a smoker, occasionally drinks, he says. No drugs. Lives on the street currently. FAMILY HISTORY: Negative for cancer, seizure, stroke. CURRENT MEDICATIONS: Here, he is on folic acid, thiamine, multivitamins, 81 of aspirin, p.r.n. Haldol and Ativan. PHYSICAL EXAMINATION: VITAL SIGNS: On exam, afebrile. T-max 99, 111/56, 17, 76. Sinus rhythm on tele. NECK: There were no carotid bruits on the right. On the left there may be just a hint of one. HEART: Regular rhythm with 1/6 systolic ejection murmur. NEUROLOGIC: Pupils are equal. Visual galvan are full. Extraocular movements intact without nystagmus. Face symmetric with normal sensation. Tongue was midline. There is no drift. Normal strength in upper and lower extremities bilaterally. DTRs are 2+ symmetric throughout. Toes downgoing bilaterally. No clonus. Gait is steady. Pinprick was intact upper and lower extremities and face bilaterally. Speech is fluent. He is not aphasic. A little confused. LABORATORY DATA: CBC is essentially normal. Urine drug screen: Alcohol level was 245. UA negative. Alcohol level on the was less than 3. Coags normal. Basic metabolic profile: Sodium 130, it was 134, 4 days ago. Corrected calcium is low at 7.6. LFTs normal. CPK and troponin were negative, a few days ago. Albumin normal. TSH normal. CAT scan of the brain as noted. No change from prior. Chest x-ray negative. ASSESSMENT AND PLAN: Left carotid artery stenosis. No history to suggest this is symptomatic. We will check an MRI of the brain; however, an EEG with what sounds like possibly a seizure the other day, probably alcohol related seizures. We could have Vascular see him for the carotid and radiology see him for the aneurysm. Otherwise, he looked fairly well neurologically, but unfortunately not interested in detoxification. MD ERIN Diamond/ELSIE , 09:00 AM , 09:37 AM
--- NOTE | 2017-07-31 11:11 | PD.CAR.PN ---
CVT Progress Note Subjective/Hospital Course: 52-year-old patient who is noncompliant with his medical care and is alcoholic lives on the street. He came to the hospital confused on 27 July then signed out AMA and left comes back now and hopefully will stay to be treated. Patient is found to have 90% left internal carotid artery stenosis i.e. near occlusion of the vessel. He was confused when he came in but it could have been a combination of alcohol and some psychiatric issues so hard for me to tell whether patient actually had a TIA. In addition patient has a anterior communicating aneurysm measuring about 8 mm in diameter. Patient does not have a neurologic deficit I have discussed this case with Dr. Hung and considering the fact that we do not coil aneurysms here patient will need to go to [facility] to have this done. Patient refuses to go anywhere and that her fact it is difficult to keep him even in the hospital here to provide adequate care So given the above the best scenario with up into transfer patient to [facility] but because he does not want it he will have to stay here. The left carotid stenosis is so critical that that has to be addressed at this admission either by us or anybody else at [facility] prior to addressing the anterior communicating aneurysm. Considering the patient refuses to go to [facility] I will proceed with a left carotid endarterectomy this week and then we can see if patient changes his mind about [facility]. I have discussed this at length with the patient Objective: Vital Signs Date Time Temp Pulse Resp B/P (MAP) Pulse Ox O2 Delivery O2 Flow Rate FiO2 07/31/17 08:00 99.0 76 17 111/56 (74) 93 07/31/17 04:03 71 07/31/17 04:00 97.4 81 20 129/68 (88) 95 07/31/17 02:00 97.2 69 20 121/66 (84) 94 07/31/17 01:41 68 07/31/17 01:36 68 07/30/17 23:22 72 16 104/58 (73) 98 Room Air 07/30/17 19:23 97.6 71 16 120/59 (79) 96 Result Diagram: 07/30/17202907/30/172209 Patrick Euceda MD July 31, 2017 11:11
--- NOTE | 2017-07-31 12:24 | MG ---
cc: Aleks Hung MD EEG NUMBER: [id number] INDICATIONS: This is a 52-year-old man with an aneurysm, alcoholism and left carotid stenosis, possible seizure several days prior. Some beta rhythms are seen bifrontally. Overall, diffuse beta and alpha waves are seen including synchronous and symmetric. No focal abnormality is noted. No seizure activity is seen. Occasionally, some diffuse theta slowing is seen down to 5 Hz as the patient falls asleep. Photic stimulation is performed without significant posterior driving. IMPRESSION: Normal awake and sleep EEG. No evidence for a focal or diffuse abnormality. Aleks Hung MD DJM/DL , 11:54 AM , 12:24 PM
[2017-07-31 12:25] LABS: AUTOMATED NEUTROPHIL # 6.3 TH/MM3 (1.8-7.7); BASOPHIL # 0.1 TH/MM3 (0-0.2); EOSINOPHIL # 0.2 TH/MM3 (0-0.4); EOSINOPHIL % 2.1 % (0.0-4.0); HEMATOCRIT 40.7 % (39.0-51.0); LYMPH % 15.2 % (9.0-44.0); LYMPHOCYTE # 1.3 TH/MM3 (1.0-4.8); MEAN CELL VOLUME 90.1 FL (80.0-100.0); MEAN CORPUSCULAR HGB CONC 34.4 % (32.0-36.0); MEAN PLATELET VOLUME 7.1 FL (7.0-11.0); MONOCYTE # 0.4 TH/MM3 (0-0.9); NEUT % 76.7 % (16.0-70.0); PLATELET COUNT 321 TH/MM3 (150-450); RED BLOOD COUNT 4.52 MIL/MM3 (4.50-5.90); RED CELL DISTRIBUTION WIDTH 13.6 % (11.6-17.2); WHITE BLOOD COUNT 8.3 TH/MM3 (4.0-11.0)
--- NOTE | 2017-07-31 12:27 | HHI.PR ---
Subjective Remarks Mr. Head is a 52 y/o male with a history of changes on brain CT c/w subacute vs chronic right parietal CVA, left carotid stenosis - 90%, alcohol abuse, and 1 cm hyperdense mass in right anterior suprasellar cistern likely related to an aneurysm found on head CT on 07/27/17 prior to the patient leaving AMA from the ER on the same date. He also reports a history of CAD s/p stent placement. He returned to the ED on 07/30/17 under [place] act by police department due to alcohol intoxication. He requested evaluation for his aneurysm at the time of presentation in the emergency department. The patient was admitted to observation under the hospitalist service. The patient is seen in his hospital room. He is uncooperative with examination and history process. He is drowsy throughout my visit. He refuses to open his eyes throughout the visit. He reports that he had "a spell" and does not elucidate further his reasons for coming to the hospital. He will answer yes/ no to questions. SEEN BY NEUROLOGY AND VASCULAR SURGERY DOES NOT WANT TO STOP ALCOHOL ABUSE AND INTAKE RADIOLOGY CONSULT DW RN AND PT Objective Vitals Vital Signs Date Time Temp Pulse Resp B/P (MAP) Pulse Ox O2 Delivery O2 Flow Rate FiO2 07/31/17 08:00 99.0 76 17 111/56 (74) 93 07/31/17 04:03 71 07/31/17 04:00 97.4 81 20 129/68 (88) 95 07/31/17 02:00 97.2 69 20 121/66 (84) 94 07/31/17 01:41 68 07/31/17 01:36 68 07/30/17 23:22 72 16 104/58 (73) 98 Room Air 07/30/17 19:23 97.6 71 16 120/59 (79) 96 I/O 07/30/17 07/30/17 07/30/17 07/31/17 07/31/17 07/31/17 07:00 15:00 23:00 07:00 15:00 23:00 Intake Total 240 ml 743 ml Balance 240 ml 743 ml Intake Oral 240 ml IV Total 743 ml # Voids 2 Result Diagram: 07/30/17 2030 07/30/172209 Other Results Laboratory Tests Test 07/30/17 20:30 07/30/17 20:35 07/30/17 22:10 07/31/17 11:49 White Blood Count 8.5 TH/MM3 8.3 TH/MM3 Red Blood Count 4.40 MIL/MM3 4.52 MIL/MM3 Hemoglobin 13.8 GM/DL 14.0 GM/DL Hematocrit 39.6 % 40.7 % Mean Corpuscular Volume 89.9 FL 90.1 FL Mean Corpuscular Hemoglobin 31.4 PG 31.0 PG Mean Corpuscular Hemoglobin Concent 35.0 % 34.4 % Red Cell Distribution Width 14.0 % 13.6 % Platelet Count 342 TH/MM3 321 TH/MM3 Mean Platelet Volume 7.2 FL 7.1 FL Neutrophils (%) (Auto) 47.6 % 76.7 % Lymphocytes (%) (Auto) 42.8 % 15.2 % Monocytes (%) (Auto) 4.7 % 5.0 % Eosinophils (%) (Auto) 4.3 % 2.1 % Basophils (%) (Auto) 0.6 % 1.0 % Neutrophils # (Auto) 4.1 TH/MM3 6.3 TH/MM3 Lymphocytes # (Auto) 3.6 TH/MM3 1.3 TH/MM3 Monocytes # (Auto) 0.4 TH/MM3 0.4 TH/MM3 Eosinophils # (Auto) 0.4 TH/MM3 0.2 TH/MM3 Basophils # (Auto) 0.0 TH/MM3 0.1 TH/MM3 CBC Comment DIFF FINAL DIFF FINAL Differential Comment Urine Opiates Screen NEG Urine Barbiturates Screen NEG Urine Amphetamines Screen NEG Urine Benzodiazepines Screen NEG Urine Cocaine Screen NEG Urine Cannabinoids Screen NEG Prothrombin Time 12.0 SEC Prothromb Time International Ratio 1.2 RATIO Activated Partial Thromboplast Time 31.6 SEC Blood Urea Nitrogen 2 MG/DL Creatinine 0.54 MG/DL Random Glucose 77 MG/DL Total Protein 6.6 GM/DL Albumin 3.5 GM/DL Calcium Level 7.3 MG/DL Alkaline Phosphatase 90 U/L Aspartate Amino Transf (AST/SGOT) 33 U/L Alanine Aminotransferase (ALT/SGPT) 20 U/L Total Bilirubin 0.3 MG/DL Sodium Level 130 MEQ/L Potassium Level 4.4 MEQ/L Chloride Level 94 MEQ/L Carbon Dioxide Level 24.1 MEQ/L Anion Gap 12 MEQ/L Estimat Glomerular Filtration Rate 159 ML/MIN Protein Corrected Calcium 7.6 MG/DL Thyroid Stimulating Hormone 3rd Gen 2.320 uIU/ML Ethyl Alcohol Level 245 MG/DL Imaging Last Impressions Head CT 07/30/172156 Signed Impressions: Service Date/Time: Sunday, July 30, 2017 23:10 - CONCLUSION: 1. No acute hemorrhage or mass effect. 2. The known 1 cm aneurysm along anterior communicating arteries is again noted. 3. Low attenuation area again noted involving the right parietal lobe most consistent with a subacute to chronic area of infarction. Gee Lin MD Objective Remarks GENERAL: Awake alert and oriented 3 talkative and cooperative SKIN: Warm and dry. HEAD: Atraumatic. Normocephalic. EYES: Pupils equal and round. No scleral icterus. No injection or drainage. ENT: No nasal bleeding or discharge. Mucous membranes pink and moist. NECK: Trachea midline. No JVD. CARDIOVASCULAR: Regular rate and rhythm. S1-S2 no S3 or S4 RESPIRATORY: No accessory muscle use. Clear to auscultation. Breath sounds equal bilaterally. GASTROINTESTINAL: Abdomen soft, non-tender, nondistended. Hepatic and splenic margins not palpable. MUSCULOSKELETAL: Extremities without clubbing, cyanosis, or edema. No obvious deformities. NEUROLOGICAL: Awake and alert. No obvious cranial nerve deficits. Motor grossly within normal limits. Five out of 5 muscle strength in the arms and legs. Normal speech. PSYCHIATRIC: Appropriate mood and affect; insight and judgment normal. Medications and IVs Current Medications Folic Acid (Folate) 1 mg DAILY PO Last administered on 07/31/17at 08:41; Start 07/31/17 at 09:00; Stop 08/05/17 at 08:59 Thiamine HCl (Vitamin B1) 100 mg DAILY PO Last administered on 07/31/17at 08:41 ; Start 07/31/17 at 09:00 Multivitamins/ Minerals Therapeutic (Theragran M Tab) 1 tab DAILY PO Last administered on 07/31/17at 08:41; Start 07/31/17 at 09:00; Stop 08/05/17 at 08:59 Flumazenil (Romazicon Inj) 0.2 mg Q1M PRN IV PUSH SEE LABEL COMMENTS; Start at 00:30 Lorazepam (Ativan) 1 mg Q4H PRN PO CIWA 8 - 10; Start 07/31/17 at 00:30 Lorazepam (Ativan Inj) 1 mg Q4H PRN IV PUSH CIWA 8 - 10; Start 07/31/17 at 00: 30 Lorazepam (Ativan) 2 mg Q2H PRN PO CIWA 11-14; Start 07/31/17 at 00:30 Lorazepam (Ativan Inj) 2 mg Q2H PRN IV PUSH CIWA 11-14; Start 07/31/17 at 00:30 Lorazepam (Ativan Inj) 2 mg Q1H PRN IV PUSH CIWA 15-20; Start 07/31/17 at 00:30 Lorazepam (Ativan Inj) 2 mg Q15M PRN IV PUSH CIWA > 20; Start 07/31/17 at 00:30 Haloperidol Lactate (Haldol Inj) 2 mg Q15M PRN IM SEE LABEL COMMENTS; Start at 00:30 Aspirin (Ecotrin Ec) 81 mg DAILY PO Last administered on 07/31/17at 08:41; Start 07/31/17 at 09:00 Sodium Chloride 1,000 ml @ 100 mls/hr Q10H IV Last administered on 07/31/17at 00:57; Start 07/31/17 at 00:26 Sodium Chloride (NS Flush) 2 ml UNSCH PRN IV FLUSH FLUSH AFTER USING IV ACCESS ; Start 07/31/17 at 00:30 Sodium Chloride (NS Flush) 2 ml BID IV FLUSH Last administered on 07/31/17at 08: 41; Start 07/31/17 at 09:00 Metoclopramide HCl (Reglan Inj) 5 mg Q6H PRN IV PUSH NAUSEA OR VOMITING; Start 07/31/17 at 00:30 Acetaminophen (Tylenol) 650 mg Q6H PRN PO FEVER/PAIN SCALE 1 TO 2/rendon; Start at 00:30 Senna/Docusate Sodium (Ernestine-Colace) 1 tab BID PO Last administered on at 08:41; Start 07/31/17 at 09:00 Magnesium Hydroxide (Milk Of Magnesia Liq) 30 ml Q12H PRN PO Mild constipation ; Start 07/31/17 at 00:30 Sennosides (Senokot) 17.2 mg Q12H PRN PO Moderate constipation; Start 07/31/17 at 00:30 Bisacodyl (Dulcolax Supp) 10 mg DAILY PRN RECTAL SEVERE CONSITIPATION; Start at 00:30 Lactulose (Lactulose Liq) 30 ml DAILY PRN PO SEVERE CONSITIPATION; Start at 00:30 A/P Problem List: (1) CVA (cerebrovascular accident) ICD Code: I63.9 - Cerebral infarction, unspecified (2) Brain aneurysm ICD Code: I67.1 - Cerebral aneurysm, nonruptured (3) Carotid artery stenosis ICD Code: I65.29 - Occlusion and stenosis of unspecified carotid artery (4) Alcohol intoxication ICD Code: F10.929 - Alcohol use, unspecified with intoxication, unspecified Assessment and Plan Mr. Head is a 52 y/o male with a history of changes on brain CT c/w subacute vs chronic right parietal CVA, left carotid stenosis - 90%, alcohol abuse, and 1 cm hyperdense mass in right anterior suprasellar cistern likely related to an aneurysm found on head CT on 07/27/17 prior to the patient leaving AMA from the ER on the same date. He also reports a history of CAD s/p stent placement. He returned to the ED on 07/30/[place] by police department due to alcohol intoxication. He requested evaluation for his aneurysm at the time of presentation in the emergency department. The patient was admitted to observation under the hospitalist service. CVA, subacute vs chronic - Head CT shows "low attenuation area again noted involving right parietal lobe most consistent with a subacute to chronic area of infarction" - no acute hemorrhage or mass effect. 1 cm aneurysm along anterior communicating arteries also again noted. - consult neurology -appreciate assistance -Neuro checks every 4 hours Carotid artery stenosis, left -left carotid stenosis - 90% on neck CTA 07/27/17 -Consult vascular surgery -assistance appreciated Alcohol abuse, high risk for alcohol withdrawal -Continuous cardiac telemetry to monitor for arrhythmia -CIWA protocol -seizure precautions -Needs to stop smoking-needs to stop drinking Await input from vascular surgery and invasive radiology department DVT prophylaxis -SCDs/teds Discharge Planning Pending clearance by all Recommend smoking cessation and alcohol cessation I do not feel he will stop either of these Otilio Calle DO July 31, 2017 12:27
[2017-07-31 12:56] LABS: ALBUMIN 3.6 GM/DL (3.4-5.0); ALKALINE PHOSPHATASE 95 U/L (45-117); ALT (GPT) 18 U/L (12-78); AST (GOT) 19 U/L (15-37); BICARBONATE 24.7 MEQ/L (21.0-32.0); BLOOD UREA NITROGEN 4 MG/DL (7-18); CALCIUM 8.2 MG/DL (8.5-10.1); CHLORIDE 102 MEQ/L (98-107); CREATININE 0.59 MG/DL (0.60-1.30); FREE T4 0.96 NG/DL (0.76-1.46); GLOMERULAR FILTRATION RATE 144 ML/MIN (>89); GLUCOSE,RANDOM 76 MG/DL (74-106); MAGNESIUM 2.5 MG/DL (1.5-2.5); PHOSPHORUS 3.1 MG/DL (2.5-4.9); SODIUM (NA) 137 MEQ/L (136-145); TOTAL BILIRUBIN ADULT 0.5 MG/DL (0.2-1.0); TOTAL PROTEIN 6.9 GM/DL (6.4-8.2)
[2017-07-31 16:31] LABS: HEMOGLOBIN A1C 5.4 % (4.3-6.0)
--- NOTE | 2017-07-31 17:19 | ECHRPT ---
Indication: pre po CONCLUSIONS The transthoracic study is normal by two-dimensional, color flow imaging and Doppler interrogation. BP: / HR: Rhythm: MEASUREMENTS (Male / Female) Normal Values Technical Quality: 2D ECHO LV Diastolic Diameter PLAX 5.4 cm 4.2 - 5.9 / 3.9 - 5.3 cm LV Systolic Diameter PLAX 3.6 cm IVS Diastolic Thickness 1.0 cm 0.6 - 1.0 / 0.6 - 0.9 cm LVPW Diastolic Thickness 1.0 cm 0.6 - 1.0 / 0.6 - 0.9 cm LV Relative Wall Thickness 0.4 RV Internal Dim ED PLAX 2.2 cm M-MODE Aortic Root Diameter MM 3.1 cm LA Systolic Diameter MM 4.0 cm LA Ao Ratio MM 1.3 AV Cusp Separation MM 1.9 cm DOPPLER Mitral E Point Velocity 93.6 cm/s Mitral A Point Velocity 91.9 cm/s Mitral E to A Ratio 1.0 LV E' Septal Velocity 9.8 cm/s Mitral E to LV E' Septal Ratio 9.6 FINDINGS LEFT VENTRICLE Normal left ventricular size and wall thickness. The left ventricular systolic function is normal wi th an estimated ejection fraction in the range of 60-65%. Left ventricular diastolic function parameters a re normal. RIGHT VENTRICLE Normal right ventricular size and systolic function. LEFT ATRIUM The left atrial size is normal. RIGHT ATRIUM The right atrial size is normal. ATRIAL SEPTUM Normal atrial septal thickness without atrial level shunting by limited color doppler interrogation. AORTA The aortic root and proximal ascending aorta are not well visualized. MITRAL VALVE Structurally normal mitral valve. No mitral valve stenosis or regurgitation. AORTIC VALVE Trileaflet aortic valve. No aortic valve stenosis or regurgitation. TRICUSPID VALVE Structurally normal tricuspid valve. No tricuspid valve stenosis or regurgitation. PULMONARY VALVE No pulmonary valve regurgitation or stenosis. VESSELS The inferior vena cava is normal in size. PERICARDIUM No pericardial effusion. Cong Dior MD (Electronically Signed) Final Date:31 Jul 2017 17:19
--- NOTE | 2017-07-31 18:12 | MB ---
cc: Patrick Euceda MD DATE: 07/31/2017 REASON FOR CONSULTATION: Left internal carotid artery stenosis and anterior communicating aneurysm of the brain. HISTORY OF PRESENT ILLNESS: This 52-year-old male who [place] [address] [place], is a current alcoholic, presents to the hospital with changes in vision, difficulty moving his arms. This happened on 07/27. At that time, he was not making sense, speaking strangely and partially unresponsive. He had left lateral gaze preference and possibly a focal seizure, but this was not clear. At that time, the patient was worked up from neurological point, was found to have 90% stenosis of the left carotid artery and about 8-9 mm right anterior communicating artery aneurysm. He left AMA and now he comes back, again intoxicated under [place] act. At this time, he was not drunk, alcohol level was 0. He does not want to detoxify rehab, but he is scared of what is going on with his brain. PAST MEDICAL HISTORY: Unknown. Apparently, he had some sort of a stent put in a few years ago, but he is not sure where it was. No other history or CABG, atrial fibrillation, hypertension that we know of. SOCIAL HISTORY: He does not smoke and states does not use drugs, but drinks. PHYSICAL EXAMINATION: GENERAL: Reveals a 52-year-old male saying very few words, answering simple questions appropriately, but otherwise to himself. I had to pull out of him every answer I could get. HEENT: Normocephalic. No trauma to the head. Pupils equal, reactive. Extraocular muscles intact. NECK: Bilateral carotid pulses and actually I do not hear any bruits. HEART: Regular rhythm. CHEST: Bilateral breath sounds, decreased, though both lung galvan. ABDOMEN: Soft, active bowel sounds. No rebound, no guarding, no masses. NEUROLOGIC: Cranial nerves II-XII normal. The patient has no abnormalities in the facial features. Motorically bilaterally intact, symmetric. No lateralization of any sorts. Bilateral, normal deep tendon reflexes. No pathologic reflexes. The patient is speaking, but not much. [place] coma scale is clearly 15. IMPRESSION AND RECOMMENDATIONS: The patient has a critical 90% stenosis of the left internal carotid artery, which is near occlusion. He also has an aneurysm of the anterior communicating artery. I discussed this with Dr. Hung. In ideal circumstances, the patient would go to [facility], have both of those treated considering we do not do coil aneurysms. However, the patient refuses to go to [facility]. As a matter of fact, it will be hard to keep him in the hospital here to do the appropriate things considering the events of the first last few days. I discussed with the patient the issues and there is no way he is going to go to [facility]. So, at this point, I believe the lesser of the options is still available and the patient should have his left carotid endarterectomy done because even asymptomatic (I am not sure if it is asymptomatic) this should be done PREMA. In addition, there is no way anybody is going to touch this aneurysm until the carotid is fixed. So, my plan would be to do carotid endarterectomy here and then see if the patient changes his mind and maybe goes to [facility]. Thank you much for the referral. I will continue to follow the patient. MD BRIAN Domingo/WHITNEY , 05:33 PM , 06:11 PM
[2017-07-31] MEDS ORDERED: CHLORHEXIDINE GLUCONATE 2 % 1 PACK (2 CLOTHS) TOPICAL PRN (18:15)
[2017-07-31] MEDS ORDERED: LACTATED RINGER'S 1000 ML IV PRN (18:15)
[2017-07-31] MEDS ORDERED: METOPROLOL TARTRATE 25 MG TAB PO PRN (18:15)
[2017-07-31] MEDS ORDERED: SODIUM CHLORID 0.9% 500 ML IV PRN (18:15)
[2017-07-31] MEDS ORDERED: POVIDONE IODINE 5% (ANTISEPSIS KIT) 4 APPLICATIONS EACH NARE PRN (18:15)
[2017-08-01] VITALS: BP_SYST 126; BP_SYST 141; BP_DIAS 60; BP_DIAS 67; PULSE 67; PULSE 83; RESP 16; RESP 18; TEMP 98.6; TEMP 98.8; O2SAT 95; O2SAT 96
[2017-08-01 00:14] VITALS: PULSE 66
[2017-08-01 04:00] VITALS: BP 151/67; PULSE 62; PULSE 65; RESP 18; TEMP 98.8; O2SAT 95
[2017-08-01 06:21] LABS: AUTOMATED NEUTROPHIL # 4.7 TH/MM3 (1.8-7.7); BASOPHIL % 0.6 % (0.0-2.0); EOSINOPHIL # 0.2 TH/MM3 (0-0.4); HEMATOCRIT 39.7 % (39.0-51.0); HEMOGLOBIN 13.7 GM/DL (13.0-17.0); LYMPH % 18.5 % (9.0-44.0); LYMPHOCYTE # 1.3 TH/MM3 (1.0-4.8); MEAN CELL VOLUME 91.3 FL (80.0-100.0); MEAN CORPUSCULAR HEMOGLOBIN 31.5 PG (27.0-34.0); MEAN CORPUSCULAR HGB CONC 34.5 % (32.0-36.0); MEAN PLATELET VOLUME 7.3 FL (7.0-11.0); MONOCYTE # 0.8 TH/MM3 (0-0.9); NEUT % 66.9 % (16.0-70.0); PLATELET COUNT 286 TH/MM3 (150-450); RED BLOOD COUNT 4.35 MIL/MM3 (4.50-5.90); RED CELL DISTRIBUTION WIDTH 13.5 % (11.6-17.2)
[2017-08-01] MEDS: SODIUM CHLOR 0.9% 1000 ML INJ 1,000 ML IV SCH (06:26)
[2017-08-01 06:51] LABS: ALBUMIN 3.6 GM/DL (3.4-5.0); AST (GOT) 14 U/L (15-37); BICARBONATE 24.6 MEQ/L (21.0-32.0); BLOOD UREA NITROGEN 9 MG/DL (7-18); CALCIUM 8.4 MG/DL (8.5-10.1); CHLORIDE 105 MEQ/L (98-107); CREATININE 0.67 MG/DL (0.60-1.30); GLOMERULAR FILTRATION RATE 124 ML/MIN (>89); GLUCOSE,RANDOM 90 MG/DL (74-106); MAGNESIUM 2.6 MG/DL (1.5-2.5); SODIUM (NA) 140 MEQ/L (136-145)
[2017-08-01 07:00] LABS: ALKALINE PHOSPHATASE 95 U/L (45-117); ALT (GPT) 16 U/L (12-78); FREE T4 0.89 NG/DL (0.76-1.46); PHOSPHORUS 3.7 MG/DL (2.5-4.9); TOTAL BILIRUBIN ADULT 0.4 MG/DL (0.2-1.0); TOTAL PROTEIN 6.6 GM/DL (6.4-8.2)
[2017-08-01] MEDS: SODIUM CHLORIDE 0.9% FLUSH 10 ML FLUSH IV FLUSH SCH (07:54)
[2017-08-01] MEDS: MULTIVITAMINS/MINERALS THERAPEUTIC TAB PO SCH (07:55)
[2017-08-01] MEDS: FOLIC ACID 1 MG TAB PO SCH (07:55)
[2017-08-01] MEDS: DOCUSATE SODIUM 50 MG/SENNA 8.6 MG TAB PO SCH (07:55)
[2017-08-01] MEDS: ASPIRIN EC 81 MG TABEC PO SCH (07:55)
[2017-08-01] MEDS: THIAMINE HCL 100 MG TAB PO SCH (07:55)
--- NOTE | 2017-08-01 07:58 | HHI.PR ---
Objective Vital Signs Date Time Temp Pulse Resp B/P (MAP) Pulse Ox O2 Delivery O2 Flow Rate FiO2 08/01/17 04:00 65 08/01/17 04:00 98.8 62 18 151/67 (95) 95 08/01/17 00:14 66 08/01/17 00:00 98.8 67 18 141/67 (91) 95 07/31/17 20:00 81 07/31/17 20:00 99.1 81 16 144/63 (90) 96 07/31/17 16:00 99.3 83 17 163/70 (101) 97 07/31/17 12:00 98.8 77 17 143/69 (93) 93 07/31/17 08:00 99.0 76 17 111/56 (74) 93 I/O 07/31/17 07/31/17 07/31/17 08/01/17 08/01/17 08/01/17 07:00 15:00 23:00 07:00 15:00 23:00 Intake Total 240 ml 743 ml 840 ml Output Total 300 ml Balance 240 ml 743 ml 540 ml Intake Oral 240 ml 840 ml IV Total 743 ml Output Urine Total 300 ml # Voids 2 5 2 Result Diagram: 08/01/17 0549 08/01/17 0549 Objective Remarks awake alert not anxious nl speech Assessment and Plan Assessment and Plan imp mri pend eeg nl b12 shots he is willing to go to [facility] now for aneurism and left carotid stenosis without transfer he will never be able to get there himself med team plz transfer him to [facility] Aleks Hung MD August 01, 2017 07:58
[2017-08-01 08:00] VITALS: BP 142/77; PULSE 67; RESP 18; TEMP 97.5; O2SAT 97
[2017-08-01] MEDS ORDERED: CYANOCOBALAMIN 1000 MCG/ML VIAL SQ SCH (09:00)
--- NOTE | 2017-08-01 11:00 | HHI.PR ---
Addendum To [facility]PAS Progress Not Reason for addendum: Additonal documentation Addendum Remarks Attempted to see patient at 10:30am, however notified by staff that the patient left AGAINST MEDICAL ADVICE around 9am this morning. The patient was never assessed by myself prior to leaving. Rama Medeiros PA-C August 01, 2017 11:00
[2017-08-01 16:18] LABS: HEMOGLOBIN A1C 5.3 % (4.3-6.0)
--- NOTE | 2017-08-01 16:39 | EKG ---
Date Performed: 07/31/2017 Time Performed: 20:28:23 PTAGE: 52 years EKG: Sinus rhythm POSSIBLE RIGHT VENTRICULAR CONDUCTION DELAY BORDERLINE ECG PREVIOUS TRACING : 07/30/2017 20.24 Since the previous tracing, no significant change noted DOCTOR: Laurence Richards Interpretating Date/Time 08/01/2017 16:38:48
== END 2017-08-01 09:55 | disposition left against medical advice (07) ==
LOC: NEDAMB 19:04 → NEDA 07-31 00:26 → N06B 07-31 01:05
PROVIDERS: ADMIT Hospitalist; ATTEND Hospitalist
DX: I63.9 Cerebral infarction, unspecified (principal); I67.1 Cerebral aneurysm, nonruptured; I65.22 Occlusion and stenosis of left carotid artery; F10.229 Alcohol dependence with intoxication, unspecified; Y90.8 Blood alcohol level of 240 mg/100 ml or more; I25.10 Atherosclerotic heart disease of native coronary artery without angina pectoris; I45.10 Unspecified right bundle-branch block; R94.31 Abnormal electrocardiogram [ECG] [EKG]; F17.200 Nicotine dependence, unspecified, uncomplicated; Z59.0 Homelessness; Z95.5 Presence of coronary angioplasty implant and graft; Z53.20 Procedure and treatment not carried out because of patient's decision for unspecified reasons
CPT/HCPCS: 70450; 80053; 80307; 82607; 82948; 83036; 83735; 84100; 84439; 84443; 85025; 85610; 85652; 85730; 86038; 86592; 86850; 86900; 86901; 86920; 93005; 93306; 95819; 96360; 96361; 97163; 99285; G0378; G8987; G8988; J7030